=== PATIENT | female | born 1995 ===

== ENCOUNTER 2022-08-27 02:39 | Emergency (ER) | payer MEDICAID, OTHER ==
--- NOTE | 2022-08-27 02:49 | ED Physician Documentation ---
PD HPI CHEST PAIN - Stated complaint Stated Complaint: CP PALPITATIONS - Chief complaint Chief Complaint: Cardiac - History obtained from History obtained from: Patient - History of Present Illness Timing - onset: How many hours ago (1-2), Today Timing - onset during: Rest (She was sitting up in bed, not asleep, and had an onset of feeling of palpitations and irregular heartbeat with dyspnea and a pressure feeling in her chest. No sharp or stabbing pain.Her watch monitor showed a possible A. fib which she recorded on her phone.) Timing - duration: Minutes Timing - details: Abrupt onset, Now resolved Quality: Pressure, Tightness Location: Substernal Radiation: Neck. No: Jaw, Back Worsened by: No: Exertion, Inspiration Associated symptoms: Shortness of air, Palpitations. No: Nausea, Vomiting, Feeling faint / dizzy Similar symptoms before: No diagnosis (has had Holter monitors before without abnormal rhythms. ECHO due to heart monitor when but pt states was told it was normal. Has not had stress tests. Was to get one but moved from [place] to [facility] recently.) Recently seen: Not recently seen Review of Systems Constitutional: denies: Fever, Chills Nose: denies: Rhinorrhea / runny nose, Congestion Throat: denies: Sore throat Cardiac: reports: Chest pain / pressure, Palpitations (during the night tonight). denies: Pedal edema, Calf pain Respiratory: reports: Dyspnea, Cough (mild). denies: Wheezing GI: reports: Abdominal Pain (epigastric). denies: Nausea, Vomiting, Diarrhea Skin: denies: Rash Musculoskeletal: denies: Extremity swelling PD PAST MEDICAL HISTORY - Past Medical History Cardiovascular: Murmur (was more prominent when . Patient states ECHO done was "normal" though. 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 ) - Present Medications Home Medications: Ambulatory Orders Medication Instructions Recorded Confirmed Gabapentin [Neurontin] 1,200 mg PO QPM 08/27/22 08/27/22 - Allergies Allergies/Adverse Reactions: Allergies Allergy/AdvReac Type Severity Reaction Status Date / Time kiwi Allergy Itching Verified 08/27/22 02:57 latex Allergy Rash Verified 08/27/22 02:57 PD ED PE NORMAL - Vitals Vital signs reviewed: Yes - General General: Alert and oriented X 3, No acute distress, Well developed/nourished (thin with low BMI which she states has been lifelong body shape. ) - HEENT HEENT: Pharynx benign - Neck Neck: Supple, no meningeal sign, No adenopathy - Cardiac Cardiac: RRR (I don't hear a murmur at this time. ), No murmur - Respiratory Respiratory: No respiratory distress, Clear bilaterally - Abdomen Abdomen: Normal bowel sounds, Soft, Non distended, No organomegaly, Other (mild tenderness epigastric without guarding. ) - Derm Derm: Normal color, Warm and dry - Extremities Extremities: Normal ROM s pain, No edema, No calf tenderness / cord - Neuro Neuro: Alert and oriented X 3, No motor deficit, Normal speech Results - Vitals Vitals: Vital Signs - 24 hr 08/27/22 02:42 Temperature 36.0 C L Heart Rate 90 Respiratory 16 Rate Blood Pressure 126/87 H O2 Saturation 99 Oxygen O2 Source Room air - EKG (time done) 02:48 Rate: Rate (enter#) (86) Rhythm: NSR [place]: Normal Intervals: Normal ID QRS: Normal Ischemia: Normal ST segments, T wave inversion (anterior leads. No ST changes. ). No: ST elevation c/w ischemia, ST depression - Labs Labs: Laboratory Tests 08/27/22 08/27/22 08/27/22 03:05 03:05 03:05 WBC 6.7 RBC 4.63 Hgb 13.4 Hct 40.5 MCV 87.5 MCH 28.9 MCHC 33.1 RDW 12.7 Plt Count 238 MPV 11.0 H Neut # (Auto) 3.0 Lymph # (Auto) 2.7 [place] # (Auto) 0.4 Eos # (Auto) 0.5 Baso # (Auto) 0.0 Absolute Nucleated RBC 0.00 Nucleated RBC % 0.0 Sodium 139 Potassium 3.5 Chloride 106 Carbon Dioxide 23 Anion Gap 10.0 BUN 13 Creatinine 0.7 Estimated GFR (MDRD) 100 Glucose 101 H Calcium 9.3 Total Bilirubin 0.4 AST 21 ALT 10 Alkaline Phosphatase 60 Troponin I High Sens 2.4 Total Protein 7.3 Albumin 4.3 Globulin 3.0 Albumin/Globulin Ratio 1.4 Lipase 52 H PD MEDICAL DECISION MAKING - ED course Complexity details: reviewed results, re-evaluated patient, considered differential (I looked at the rhythm on her phone that we recorded at home. I had a very regular RR interval on the QRS waves. Some wandering baseline otherwise so I could see the misinterpretation for A. fib.), d/w patient Departure - Departure Disposition: 01 Home, Self Care Clinical Impression: Chest pain Qualifiers: Chest pain type: precordial pain Qualified Code(s): R07.2 - Precordial pain Dyspnea Qualifiers: Dyspnea type: shortness of breath Qualified Code(s): R06.02 - Shortness of breath Condition: Stable Record reviewed to determine appropriate education?: Yes Instructions: ED Chest Pain Atypical Unkn Cause Comments: Your EKG here shows in normal rhythm without any ischemic pattern (no injury pattern). The heart rhythm on your phone from your watch that said possible A. fib shows a very regular QRS interval (RR interval) and so it is not atrial fibrillation but appears to be just a poor baseline on the reading. Your basic electrolytes and kidney function and blood count are good. The troponin is normal, which is a blood test to detect any signs of heart muscle injury. Unclear the cause of your symptoms you had. It is possible you may have had an abnormal rhythm at the time of the symptoms more. Follow-up with the internal medicine appointment you have upcoming. They may want to set you up with a Zio patch or other type heart monitor which records over a timeframe more like 1 to 2 weeks. Also to get stress testing/ ECHO/ etc as indicated. Return to the ER if persistent or worse symptoms.
[2022-08-27 03:10] LABS: BASOPHILS % (AUTO) 0.6 %; EOSINOPHILS # (AUTO) 0.5 10^3/uL (0.0-0.7); EOSINOPHILS % (AUTO) 7.2 %; HCT - HEMATOCRIT 40.5 % (37.0-47.0); HGB - HEMOGLOBIN 13.4 g/dL (12.0-16.0); LYMPHOCYTES # (AUTO) 2.7 10^3/uL (1.5-3.5); LYMPHOCYTES % (AUTO) 40.7 %; MEAN CORPUSCULAR HEMOGLOBIN 28.9 pg (27.0-31.0); MEAN CORPUSCULAR HGB CONC 33.1 g/dL (32.0-36.0); MEAN CORPUSCULAR VOLUME 87.5 fL (81.0-99.0); MONOCYTES # (AUTO) 0.4 10^3/uL (0.0-1.0); MONOCYTES % (AUTO) 6.3 %; NEUTROPHILS % (AUTO) 45.1 %; PLT - PLATELET COUNT 238 10^3/uL (130-450); RED BLOOD COUNT 4.63 10^6/uL (4.20-5.40); RED CELL DISTRIBUTION WIDTH 12.7 % (12.0-15.0); WHITE BLOOD COUNT 6.7 x10^3/uL (4.8-10.8)
[2022-08-27 03:25] LABS: ALBUMIN 4.3 g/dL (3.2-5.5); ALBUMIN/GLOBULIN RATIO 1.4 (1.0-2.2); BILIRUBIN,TOTAL 0.4 mg/dL (0.2-1.0); CALCIUM 9.3 mg/dL (8.5-10.3); CREATININE 0.7 mg/dL (0.4-1.0); POTASSIUM 3.5 mmol/L (3.5-5.0); TOTAL PROTEIN 7.3 g/dL (6.7-8.2)
[2022-08-27] MEDS ORDERED: KETOROLAC 15 MG/ML VIAL IVP STA (03:32)
[2022-08-27 03:37] VITALS: BP 122/84
== END 2022-08-27 03:55 | disposition home or self-care (01) ==
LOC: ED 02:39
DX: R07.2 Precordial pain (principal); R06.02 Shortness of breath
CPT/HCPCS: 36415; 80053; 83690; 84484; 85025; 93005; 96374; 99284

== ENCOUNTER 2023-12-16 01:39 | Emergency (ER) | payer MEDICAID, OTHER ==
--- NOTE | 2023-12-16 04:01 | ED Physician Documentation ---
History of Present Illness - Stated complaint Stated Complaint: DIZZY/CHEST PX - Chief complaint Chief Complaint: Cardiac - History obtained from History obtained from: Patient - Additonal information Additional information: HPI from patient. Patient c/o dizziness and lightheadedness, sudden onset while at home at rest. She describes mild anterior chest pressure, as well. She noted heart rate in 120 s and measured her BP with results 130s/80s. No exacerbating nor ameliorating factors. Symptoms were not worse with standing/ambulating. Patient has had many similar previous episodes and has been diagnosed with POTS; however, has never had symptom onset while seated (as happened tonight). She denies LOC. 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: Tubal ligation, Hysterectomy HEENT: Myringotomy (tubes), Tonsil/Adenoidectomy - Present Medications Home Medications: Ambulatory Orders Medication Instructions Recorded Confirmed Gabapentin [Neurontin] 1,200 mg PO QPM 08/27/22 08/27/22 - Allergies Allergies/Adverse Reactions: Allergies Allergy/AdvReac Type Severity Reaction Status Date / Time kiwi Allergy Itching Verified 12/16/23 03:20 latex Allergy Rash Verified 12/16/23 03:20 - Social History Does the pt smoke?: No Smoking Status: Never smoker Does the pt drink ETOH?: No Does the pt have substance abuse?: No - Immunizations Immunizations are current?: Yes - POLST Patient has POLST: No Results - Vitals Vitals: Oxygen O2 Source Room air - EKG (time done) No standard instances EKG releavant findings:: EKG personally interpreted by author of this note. Relevant findings are: Rate: Rate (enter#) (81) Rhythm: NSR [place]: Other (borderline RAD) Intervals: Normal [place] QRS: Normal Ischemia: Normal ST segments PD Medical Decision Making - ED course Complexity details: re-evaluated patient, considered differential, d/w patient ED course: Asymptomatic by the time of my H+P. She has normal vital signs throughout ED stay and is NSR on monitor as well as EKG. She says she has had work-ups for these symptoms before including tilt-table test. 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 She is discharged after 3 hours of telemetric observation in ED without symptoms or abnormalities on athletic monitor. Return precautions reviewed, follow up with PCP advised. Departure - Departure Disposition: 01 Home, Self Care Clinical Impression: Palpitations Condition: Good Instructions: ED Chest Pain Atypical Unkn Cause, ED Palpitations Comments: Your vital signs including a heart rate/rhythm were normal during your ER stay. There were no concerning findings on your EKG. Follow-up with your primary care provider, next available appointment. Forms: PCP List Discharge Date/Time: 12/16/23 05:00
[2023-12-16 04:21] VITALS: O2SAT 99
[2023-12-16 04:56] VITALS: BP 108/63
== END 2023-12-16 05:00 | disposition home or self-care (01) ==
LOC: ED 01:39
DX: R00.2 Palpitations (principal); G90.A Postural orthostatic tachycardia syndrome [POTS]; Q79.60 Ehlers-Danlos syndrome, unspecified
CPT/HCPCS: 80053; 83690; 84484; 85025; 93005; 99283; 99284